=== PATIENT | female | born 1960 | race African-American/Black ===

== ENCOUNTER 2018-07-09 09:10 | Observation (INO) | payer MEDICAID ==
--- NOTE | 2018-07-09 09:34 | ED ---
HPI Chest Pain - HPI Summary HPI Summary: This pt is a 58 y/o female [facility] c/o left sided chest pain. Pt is hard of hearing and daughter, Prisca, is giving the history. Daughter states that around 20:30 last night pt began to have chest pain and elevated blood pressure, around 155/72 at its max. Pt took her blood pressure medication soon after and her blood pressure decreased, significant lower. Daughter states pt took 324 mg aspirin at 20:30 last night. Pt did not want to come to the ED as her chest pain had already resolved. This morning around 08:30 pt began to have chest pain again. Pt describes pressure on the left side of her chest, rating it 6 or 7 out of 10 in severity. She states her chest pain radiates to the left side of her jaw and down her left arm. Pt also reports some cough yesterday. Denies fever, chills, SOB, nausea, vomiting, abd pain. PMHx: CHF, HTN, asthma. No hx of blood clots or aneurysms. Pt does not have a PCP. Her medications, albuterol and antihypertensive medications, are prescribed by the [facility]. - History of Current Complaint Chief Complaint: EDChestPainROMI Time Seen by Provider: 07/09/18 09:25 Hx Obtained From: Patient, Family/Golf Cart Maker - Daughter Onset/Duration: Started Days Ago - 1, Still Present Timing: Intermittent, Lasting Days - 1 Current Severity: Moderate Pain Intensity: 6 Pain Scale Used: 0-10 Numeric Chest Pain Location: Left Anterior Chest Pain Radiates: Yes Chest Pain Radiates To:: Arm - left, Jaw - left Character: Dull/Aching - Aching, Pressure/Squeezing - pressure Aggravating Factor(s): Nothing Alleviating Factor(s): Nothing Associated Signs and Symptoms: Positive: Chest Pain, Cough. Negative: Shortness of Breath, Fever, Chills, Nausea, Abdominal Pain, Vomiting - Allergy/Home Medications Allergies/Adverse Reactions: Allergies Allergy/AdvReac Type Severity Reaction Status Date / Time Sulfa (Sulfonamide Allergy Rash Verified 07/09/18 09:27 Antibiotics) Home Medications: Home Medications Albuterol HFA INHALER* [Ventolin HFA Inhaler*] 2 puff INH Q6H PRN 07/09/18 [ History Confirmed 07/09/18] Aspirin TAB* [Aspirin 325 MG TAB*] 325 mg PO DAILY PRN 07/09/18 [History Confirmed 07/09/18] Metoprolol Succinate XL TAB* [Toprol XL TAB*] 25 mg PO DAILY 07/09/18 [History Confirmed 07/09/18] PMH/Surg Hx/FS Hx/Imm Hx Cardiovascular History: Reports: Hx Congestive Heart Failure, Hx Hypertension Respiratory History: Reports: Hx Asthma Infectious Disease History: No Infectious Disease History: Denies: Traveled Outside the [place] in Last 30 Days - Family History Known Family History: Positive: Diabetes - father - Social History Alcohol Use: None Substance Use Type: Reports: None Smoking Status (MU): Never Smoked Tobacco Review of Systems Negative: Fever, Chills Negative: Erythema Negative: Sore Throat Positive: Chest Pain Positive: Cough. Negative: Shortness Of Breath Negative: Abdominal Pain, Vomiting, Nausea Negative: dysuria, hematuria Negative: Myalgia, Edema Negative: Rash Neurological: Other - NEG: dizziness All Other Systems Reviewed And Are Negative: Yes Physical Exam - Summary Physical Exam Summary: Constitutional: Well-developed, Well-nourished, Alert. (-) Distressed Skin: Warm, Dry HENT: Normocephalic; Atraumatic Eyes: Conjunctiva normal Neck: Musculoskeletal ROM normal neck. (-) JVD, (-) Stridor, (-) Tracheal deviation Cardio: Rhythm regular, rate normal, Heart sounds normal; Intact distal pulses; The pedal pulses are 2+ and symmetric. Radial pulses are 2+ and symmetric. (-) Murmur Pulmonary/Chest wall: Effort normal. (-) Respiratory distress, (-) Wheezes, (-) Rales Abd: Soft, (-) Tenderness, (-) Distension, (-) Guarding, (-) Rebound Musculoskeletal: (-) Edema Lymph: (-) Cervical adenopathy Neuro: Alert, Oriented x3 Psych: Mood and affect Normal Triage Information Reviewed: Yes Vital Signs On Initial Exam: Initial Vitals Temp Pulse Resp BP Pulse Ox 97.8 F 67 18 139/65 100 07/09/18 09:13 07/09/18 09:13 07/09/18 09:13 07/09/18 09:13 07/09/18 09:13 Vital Signs Reviewed: Yes Diagnostics - Vital Signs Vital Signs Temp Pulse Resp BP Pulse Ox 07/09/18 09:13 97.8 F 67 18 139/65 100 - Laboratory Result Diagrams: 07/09/18 09:42 07/09/18 09:42 Lab Statement: Any lab studies that have been ordered have been reviewed, and results considered in the medical decision making process. - Radiology Chest XR Radiology Interpretation Completed By: Radiologist Summary of Radiographic Findings: IMPRESSION: No active cardiopulmonary disease is noted. Dr. Bro has reviewed this report. - EKG 09:24 Cardiac Rate: NL - at 64 bpm EKG Rhythm: Sinus Rhythm Summary of EKG Findings: No STEMI Re-Evaluation - Re-Evaluation First Eval Re-Evaluation Time: 10:40 Change: Improved Comment: Pt reports improvement of her chest discomfort, down to 3/10 in severity. Pt also states she has a headache. Chest Pain Course/Dx - Course Assessment/Plan: Pt is a 58 y/o female who presents to the ED with left sided chest pain radiating to left jaw and left arm. Pt had an episode of chest pain with elevated blood pressure yesterday at 20:30. Both resolved after antihypertensive medication and 324 mg aspirin. Today at 08:30 chest pain began again, described as pressure. Chest XR shows no active cardiopulmonary disease is noted. In the ED course the pt was given Tylenol, nitro tab, nitroglycerin ointment. I discussed the case with Dr. Morales, hospitalist, who accepted the pt for admission. - Diagnoses Provider Diagnoses: Chest pain, unspecified - Provider Notifications Discussed Care Of Patient With: Destiny Morales - hospitalist Time Discussed With Above Provider: 10:52 Instructed by Provider To: Admit As Inpatient Discharge - Sign-Out/Discharge Documenting (check all that apply): Patient Departure - Admit to [facility] - Discharge Plan Condition: Stable Disposition: ADMITTED TO [facility] Referrals: No Primary Care Phys,NOPCP [Primary Care Provider] - - Attestation Statements Document Initiated by Scribe: Yes Documenting Scribe: Esha Rojas Provider For Whom Scribe is Documenting (Include Credential): Obinna Bro MD Scribe Attestation: Esha Ball, scribed for Obinna Bro MD on 07/09/18 at 1321. Status of Scribe Document: Ready
[2018-07-09] MEDS ORDERED: Nitroglycerin TAB 0.4 MG* 0.4 MG TAB SL ONE (09:37)
[2018-07-09 09:56] LABS: ABS Basophils 0.1 10^3/ul (0-0.2); ABS Eosinophils 0.1 10^3/ul (0-0.6); ABS Lymphocytes 1.9 10^3/ul (1.0-4.8); ABS Monocytes 0.9 10^3/ul (0-0.8); ABS Nucleated RBC 0 10^3/ul; Eosinophil % 0.8 %; Hematocrit 35 % (35-47); Hemoglobin 11.3 g/dl (12.0-16.0); Lymphocyte % 21.4 %; Mean Corpuscular HGB Conc 33 g/dl (31-36); Mean Corpuscular Hemoglobin 29 pg (27-31); Mean Corpuscular Volume 89 fL (80-97); Mean Platelet Volume 8.8 fL (7.4-10.4); Nucleated Red Blood Cells % 0.1; Platelet Count 234 10^3/ul (150-450); Red Blood Count 3.91 10^6/ul (4.00-5.40); Red Cell Distribution Width 13 % (10.5-15); White Blood Count 8.9 10^3/ul (3.5-10.8)
[2018-07-09 10:14] LABS: Albumin 3.9 g/dL (3.2-5.2); Albumin/Globulin Ratio 1.3 (1-3); BUN/Creatinine Ratio 10.5 (8-20); EGFR Non-African American 67.8 (>60); Globulin 2.9 g/dL (2-4); Potassium 3.9 mmol/L (3.5-5.0); Total Bilirubin 0.5 mg/dL (0.2-1.0); Total Protein 6.8 g/dL (6.4-8.9)
[2018-07-09] MEDS ORDERED: Nitroglycerin 2% OINT* 1 GM PAK TOPICAL ONE (10:43)
[2018-07-09] MEDS ORDERED: Acetaminophen TAB* 325 MG PO ONE (10:43)
[2018-07-09] MEDS ORDERED: Nitroglycerin TAB 0.4 MG* 0.4 MG TAB SL PRN (12:29)
[2018-07-09] MEDS ORDERED: Aspirin TAB* 325 MG PO PRN (12:37)
[2018-07-09] MEDS ORDERED: Albuterol 2.5 MG/3 ML NEB.SOL* (0.083%) INH PRN (12:37)
[2018-07-09 13:41] LABS: TSH (Thyroid Stimulating Horm) 1.06 mcIU/mL (0.34-5.60)
[2018-07-09] MEDS: Heparin VIAL(*) 5000 UNITS/ML VIAL (FIVE THOUSAND) SUBCUT SCH ×2 (14:30→21:51)
--- NOTE | 2018-07-09 14:47 | HP ---
ADMISSION HISTORY AND PHYSICAL: DATE OF ADMISSION: 07/09/18 PRIMARY CARE PROVIDER: None. MY ATTENDING WHILE IN THE HOSPITAL: Dr. Destiny Morales.* (DICTATED BY SCOTT PADRON) CHIEF COMPLAINT: Chest pain. HISTORY OF PRESENT ILLNESS: Ms. Gardner is a 58-year-old female with past medical history significant for CHF, hypertension, asthma and congenital deafness as well as sickle cell trait, who presents to the emergency department with 1 day of intermittent chest pain and shortness of breath that started in the evening of 07/09/18. The patient is difficult to communicate with due to her deafness, so most of this is obtained through communication via her daughter. The patient states that her first symptom was irritability, which occurred 2 days ago that she was not annoyed to anybody; she just felt on edge and her chest pain and shortness of breath began last night. It was under her left breast and radiated into her left arm, into her back and up into her neck. The patient states it came and went. The patient's blood pressure was at its highest, 153/72. The patient at this time is chest pain free. The patient denies any diaphoresis. The patient's main pain at this point is in her neck and seems to radiate down from her face and is reproducible to palpation. The patient has not taken anything for this. The patient had a history of CHF; they are unsure what type. The patient do not think she has ever had a catheterization or a stress test. The patient relatively gets short of breath on exertion, but is generally asymptomatic if she does not engage in strenuous exercise. The patient most recently had a cold, which her daughter also had and has been coughing more recently. The patient has chronic lower back pain and this is still present and is not changed from her baseline. The patient has recently lost approximately 5 to 7 pounds of what they assumed to be water weight due to the decrease in her edema. The patient does not get frequent edema. The patient does not take any diuretics. The patient moved from [place] in 2009, has not established with primary care or spool cleaner hand. The patient had a spool cleaner hand in [place], but they do not know his or her name. Due to concern for chest pain and the patient with cardiac risk factors, we are asked to evaluate the patient for admission. PAST MEDICAL HISTORY: CHF, unknown type; hypertension; asthma; thyroid nodule; lumbar pain; congenital deafness; sickle cell trait. PAST SURGICAL HISTORY: Partial thyroidectomy. MEDICATIONS: 1. Metoprolol tartrate 25 mg p.o. daily. 2. Albuterol sulfate inhaler, unknown dose every 4 hours as needed. 3. Aspirin 325 mg p.o. daily. ALLERGIES: SULFA. FAMILY HISTORY: The patient's father of complications of diabetes. The patient's mother of cardiac disease, unknown type. The patient has several siblings who are all alive and healthy. SOCIAL HISTORY: The patient has a remote history of smoking, unable to quantify the amount. The patient denies ever drinking alcohol or using drugs. The patient is disabled due to her deafness. The patient is and has only one child. The patient's surrogate decision maker is her daughter, Tamara Chandra, or her brother, Joseph Gardner. REVIEW OF SYSTEMS: A 14-point review of systems was reviewed and is negative, except as above in the HPI. PHYSICAL EXAMINATION GENERAL: The patient is a 58-year-old female, who appears stated age and is sitting comfortably on bed, in no acute distress. HEENT: Head: Normocephalic, atraumatic. Sclerae anicteric. No conjunctival injection. Nasal mucosa moist. Oral mucosa moist. No pharyngeal erythema, discharge or exudate. NECK: Tender to palpation over the lateral aspect of the left side of the neck with palpable tensing of the muscles. No lymphadenopathy. No carotid bruits auscultated. No JVD. RESPIRATORY: Clear to auscultation bilaterally. No wheezes, rales or rhonchi. Good air exchange bilaterally. CARDIAC: Regular rate and rhythm. No clicks, murmurs, gallops or rubs. Pulses are 2+ in the bilateral dorsalis pedis, posterior tibialis, and radial areas. No bilateral lower extremity edema noted. ABDOMEN: Tender to palpation in the right upper quadrant. No rebound or guarding. No hepatosplenomegaly. No abdominal bruits auscultated. No hepatojugular reflux. GENITOURINARY: No suprapubic or CVA tenderness. NEUROLOGIC: Cranial nerves II through XII intact except for deafness. No focal deficits. Alert and oriented x3. PSYCHIATRIC: Pleasant and cooperative. SKIN: Clean, dry, and intact. No rash. DIAGNOSTIC STUDIES/LAB DATA: White blood cell count of 8.9, hemoglobin 11.3, hematocrit 35, MCV 89, platelet count 234. Sodium 145, potassium 3.9, chloride 108, carbon dioxide 25, anion gap 5, BUN 9, creatinine 0.86, glucose 129, lactic acid 1.1, calcium 10.0. Bilirubin 0.5, AST 14, ALT 12, alkaline phosphatase 89. Troponin I 0.00. Total protein 6.8, albumin 3.9, globulin 2.9. Studies: EKG has normal sinus rhythm, normal axis, no hypertrophy or enlargement, no blocks. Concave ST elevation in V2 and V3 likely representing repolarization pattern. No ST segment changes. No prior studies to compare. Chest x-ray shows no acute cardiopulmonary disease. ASSESSMENT AND PLAN/IMPRESSION: Ms. Gardner is a 58-year-old male with past medical history significant for congestive heart failure, unknown etiology; hypertension; asthma and congenital deafness, who presents to the emergency department with chest pain which started last night, but has been intermittent, radiating throughout her chest and neck. The patient is currently chest pain free. The patient will be admitted for rule out myocardial infarction and evaluation for acute coronary syndrome. 1. Chest pain: The patient's chest pain has signs worrisome for acute coronary syndrome including radiation to the neck and the arm and associated shortness of breath. We do not know what the etiology of the patient's congestive heart failure is. If the patient's family is able to find out who her spool cleaner hand was, we will request records for this. The patient will be risk stratified with lipid profile and hemoglobin A1c. The patient's blood pressure is well controlled. The patient will be admitted to the hospital for serial troponins, transthoracic echocardiogram and a nuclear medicine stress test. Treatment for the patient's hyperlipidemia and diabetes will be dependant on her lipid profile and hemoglobin A1c. The patient does not need to be diuresed at this time. The patient is in no respiratory distress. The patient will have nitroglycerin available as needed for recurrent chest pain. 2. Hypertension: The patient is currently normotensive. Hold the patient's metoprolol due to stress test. 3. Asthma: Continue albuterol inhaler while in the hospital. 4. Sickle cell trait. The patient is slightly anemic and this does not appear to be an active issue with the patient. She has no signs of acute chest syndrome and is not homozygous for this trait. 5. History of thyroid nodule, add on TSH, which has not been checked yet. 6. FEN: The patient will have a heart-healthy diet without caffeine. Fluids after midnight. 7. DVT prophylaxis: The patient is a high risk. We will place her on heparin subcu. 8. Disposition: The patient is admitted to observation for a stress test. TIME SPENT: Approximately 60 minutes were spent on the admission of this patient, 30 of which was spent [id number] with the patient obtaining history and physical and discussing treatment plan. This plan was discussed with my attending, Dr. Destiny Morales, and she is in agreement. SCOTT PADRON [id number]/CPS #: [id number] MTDYair
--- NOTE | 2018-07-09 19:06 | ECHO ---
Patient: MINDI MORGAN [facility] Rec#: [id number] : 1960 Date: 07/09/2018 Age: 58y Height: 168 cm / 66.1 in Weight: 61.8 kg / 136.2 lbs Sex: F BSA: 1.7 Room#: ICU 13 Admit Date#: 07/09/2018 Type: Inpatient Referring: Wilber Gusman Reading: Devi Hills MD Network Consultant: Mabel Varela RN RDCS Transthoracic Echocardiogram Indication: Chest pain, CHF BP: 115/76 HR: 61 Rhythm: NSR Findings History: HTN, CHF, asthma, thyroid nodule, congenital deafness, sickle cell trait. Technical Comments: The study quality is good. Left Ventricle: The left ventricular chamber size is decreased. Mild concentric left ventricular hypertrophy is observed. Global left ventricular wall motion and contractility are within normal limits. There is normal left ventricular systolic function. The estimated ejection fraction is 55-60%. There is no consistent Doppler evidence of clinically significant diastolic dysfunction. Left Atrium: The left atrial chamber size is normal. Right Ventricle: The right ventricular chamber size and systolic function are within normal limits. Right Atrium: The right atrial cavity size is normal. There is evidence of an atrial septal aneurysm. Aortic Valve: The aortic valve is trileaflet. The aortic valve leaflets are mildly thickened. There is no evidence of aortic regurgitation. There is no evidence of aortic stenosis. Mitral Valve: The mitral valve leaflets are mildly thickened. There is mild mitral regurgitation. There is no evidence of mitral stenosis. Tricuspid Valve: The tricuspid valve leaflets are normal. There is trace to mild tricuspid regurgitation. No pulmonary hypertension is noted. There is no tricuspid stenosis. Pulmonic Valve: The pulmonic valve appears normal. There is a trace pulmonic regurgitation. There is no pulmonic stenosis. Pericardium: There is no significant pericardial effusion. Aorta: There is no dilatation of the ascending aorta. There is no dilatation of the aortic arch. There is no dilation of the aortic root. Pulmonary Artery: The main pulmonary artery appears normal. Venous: The inferior vena cava appears normal in size. There is an approximate 50% respiratory change in the inferior vena cava dimension. Summary: There was not any prior study for comparison. Conclusions The left ventricular chamber size is decreased. Mild concentric left ventricular hypertrophy is observed. The estimated ejection fraction is 55-60%. There is mild mitral regurgitation. There is trace to mild tricuspid regurgitation. There is a trace pulmonic regurgitation. Measurements Name Value Normal Range RVIDd (AP) 2D 2.3 cm (0.9 - 2.6) RVDdMajor (2D) 2.8 cm (2.2 - 4.4) RAd ISD 4CH 4.1 cm (3.4 - 4.9) RA (A4C)W 3.3 cm (2.9 - 4.6) IVSd (2D) 1 cm (0.6 - 1) LVPWd (2D) 1.1 cm (0.6 - 1) LVIDd (2D) 3.4 cm (3.6 - 5.4) LVIDs (2D) 2.5 cm - LV FS (2D) 26 % (25 - 45) Aortic Annulus 1.7 cm (1.4 - 2.6) Ao root diameter (2D) 2.6 cm (2.1 - 3.5) Ascending Ao 2.6 cm (2.1 - 3.4) Aortic arch 2.3 cm (1.8 - 3.4) LA dimension (AP) 2D 2.8 cm (2.3 - 3.8) LAd ISD 4CH 4.5 cm (2.9 - 5.3) LA ISD 4CH W 3.5 cm (2.5 - 4.5) Name Value Normal Range LA ESV BP (A/L) index 20.5 ml/m2 - Name Value Normal Range MV E-wave Vmax 1 m/sec - MV deceleration time 289 msec - MV A-wave Vmax 1.1 m/sec - MV E:A ratio 1 ratio - LV septal e' Vmax 0.09 m/sec - LV lateral e' Vmax 0.1 m/sec - LV E:e' septal ratio 11.1 ratio - LV E:e' lateral ratio 10 ratio - Name Value Normal Range AV Vmax 1.5 m/sec - AV VTI 31.7 cm - AV peak gradient 8 mmHg - AV mean gradient 4 mmHg - LVOT Vmax 1.1 m/sec - LVOT VTI 22.6 cm - LVOT peak gradient 5 mmHg - LVOT mean gradient 2 mmHg - PALMER Vmax 0.68 m/sec - Name Value Normal Range TR Vmax 2.5 m/sec - TR peak gradient 25 mmHg - RAP 8 mmHg - RVSP 33 mmHg - IVC diameter 1.7 cm - Name Value Normal Range PV Vmax 0.81 m/sec -
[2018-07-09] MEDS: Acetaminophen TAB* 325 MG PO PRN (20:02)
[2018-07-09] MEDS ORDERED: Metoprolol Succinate XL TAB* 25 MG PO ONE (21:49)
[2018-07-09] MEDS: Ondansetron INJ* 2 MG/ML VIAL IV PRN (23:40)
[2018-07-09] MEDS: NS 0.9% 1000 ML* 1,000 ML IV SCH (23:56)
[2018-07-10 07:11] LABS: ABS Basophils 0 10^3/ul (0-0.2); ABS Eosinophils 0.1 10^3/ul (0-0.6); ABS Lymphocytes 2.7 10^3/ul (1.0-4.8); ABS Monocytes 0.6 10^3/ul (0-0.8); ABS Neutrophils 3.4 10^3/ul (1.5-7.7); ABS Nucleated RBC 0 10^3/ul; Eosinophil % 1.5 %; Hematocrit 34 % (35-47); Hemoglobin 11.3 g/dl (12.0-16.0); Lymphocyte % 39.3 %; Mean Corpuscular HGB Conc 33 g/dl (31-36); Mean Corpuscular Hemoglobin 30 pg (27-31); Mean Corpuscular Volume 90 fL (80-97); Mean Platelet Volume 8.9 fL (7.4-10.4); Nucleated Red Blood Cells % 0.1; Platelet Count 228 10^3/ul (150-450); Red Cell Distribution Width 13 % (10.5-15); White Blood Count 6.8 10^3/ul (3.5-10.8)
[2018-07-10 07:16] LABS: BUN/Creatinine Ratio 11.5 (8-20); Calcium 9.4 mg/dL (8.6-10.3); EGFR Non-African American 66.9 (>60); HDL Cholesterol 44.5 mg/dL; Magnesium 2.1 mg/dL (1.9-2.7); Potassium 4.2 mmol/L (3.5-5.0)
[2018-07-10] MEDS: Heparin VIAL(*) 5000 UNITS/ML VIAL (FIVE THOUSAND) SUBCUT SCH ×3 (07:25→21:21)
[2018-07-10] MEDS: Metoprolol Succinate XL TAB* 25 MG PO SCH (08:28)
[2018-07-10] MEDS: Ondansetron INJ* 2 MG/ML VIAL IV PRN ×2 (08:47→21:21)
[2018-07-10] MEDS: NS 0.9% 1000 ML* 1,000 ML IV SCH (08:50)
[2018-07-10] MEDS ORDERED: Metoprolol Succinate XL TAB* 25 MG PO SCH ×2 (09:00)
[2018-07-10] MEDS ORDERED: Regadenoson* 0.4 MG/5 ML SYRINGE ONE (13:37)
[2018-07-10] MEDS: Acetaminophen TAB* 325 MG PO PRN (16:17)
--- NOTE | 2018-07-10 17:29 | PN ---
Subjective Date of Service: 07/10/18 Interval History: Pt seen and examined. Meds and labs reviewed. Pt refused any type of stress test that will need an injection for any reason. Therefore, ordered exercise stress test. CC: N/A ROS: Denied QUINTERO/dizziness, F/C, N/V, CP, SOB, increased cough, sputum production , abd pain, diarrhea, constipation, dysuria, myalgias, arthralgias, throat pain , and new skin lesions. The rest of the 14 point ROS are unremarkable. PHYSICAL EXAM: GEN APPEARANCE: Awake, not in acute distress HEENT: NC/AT, PERRLA, moist oral mucosa, (-) throat erythema NECK: Soft, supple, (-) cervical LAD, (-)JVD HEART: S1S2 WNL, RRR, No MRG CHEST: CTA, BL, GAE, No W/R/R ABD: Soft, ND/NT, NABS 4x Q EXT: No C/C/E SKIN: Warm to touch PSYCH: No active psychosis, hallucinations, depression, SI/HI Objective Active Medications: Acetaminophen (Tylenol Tab*) 650 mg PO Q6H PRN PRN Reason: FEVER/PAIN Last Admin: 07/10/18 16:17 Dose: 650 mg Albuterol (Ventolin 2.5 Mg/3 Ml Neb.Elizabeth*) 2.5 mg INH Q4H PRN PRN Reason: SOB/WHEEZING Aspirin (Aspirin Tab*) 325 mg PO DAILY PRN PRN Reason: PAIN Heparin Sodium (Porcine) (Heparin Vial(*)) 5,000 units SUBCUT Q8HR [facility] Last Admin: 07/10/18 14:19 Dose: Not Given Sodium Chloride (Ns 0.9% 1000 Ml*) 1,000 mls @ 75 mls/hr IV PER RATE [facility] Last Admin: 07/10/18 08:50 Dose: 75 mls/hr Metoprolol Succinate (Toprol Xl Tab*) 25 mg PO DAILY [facility] Last Admin: 07/10/18 08:28 Dose: Not Given Nitroglycerin (Nitroglycerin Tab 0.4 Mg*) 0.4 mg SL Q5M PRN PRN Reason: ANGINA Ondansetron HCl (Zofran Inj*) 4 mg IV Q6H PRN PRN Reason: NAUSEA Last Admin: 07/10/18 08:47 Dose: 4 mg Vital Signs - 8 hr 07/10/18 07/10/18 07/10/18 10:00 11:00 12:00 Temperature Pulse Rate 58 66 64 Respiratory 12 15 16 Rate Blood Pressure 162/83 (mmHg) O2 Sat by Pulse 94 98 98 Oximetry 07/10/18 07/10/18 07/10/18 12:01 12:59 13:00 Temperature 98.5 F Pulse Rate 67 61 Respiratory 15 25 Rate Blood Pressure (mmHg) O2 Sat by Pulse 96 98 Oximetry 07/10/18 07/10/18 07/10/18 14:00 15:52 15:57 Temperature Pulse Rate 65 70 71 Respiratory 19 15 Rate Blood Pressure 128/79 (mmHg) O2 Sat by Pulse 99 95 97 Oximetry 07/10/18 07/10/18 07/10/18 16:00 16:01 16:02 Temperature 97.7 F Pulse Rate 68 64 Respiratory 13 12 Rate Blood Pressure 127/72 (mmHg) O2 Sat by Pulse 94 96 Oximetry 07/10/18 17:00 Temperature Pulse Rate 83 Respiratory 23 Rate Blood Pressure (mmHg) O2 Sat by Pulse 100 Oximetry Oxygen Devices in Use Now: None Result Diagrams: 07/10/18 06:26 07/10/18 06:26 Microbiology and Other Data: Microbiology 07/09/18 15:00 Nasal Screen MRSA (PCR) - Final Nasal Mrsa Not Detected Assess/Plan/Problems-Billing Assessment: - Patient Problems (1) Chest pain Current Visit: Yes Status: Acute Code(s): R07.9 - CHEST PAIN, UNSPECIFIED SNOMED Code(s): 32729155 Comment: -J point elevations noted in chest leads -ACS ruled out with (-) troponins x 3 -2D echo shows no wall motion abnormalities w/EF = 55-60% -D-dimer <200 -Awaiting results of exercise stress test (2) HTN (hypertension) Current Visit: Yes Status: Acute Code(s): I10 - ESSENTIAL (PRIMARY) HYPERTENSION SNOMED Code(s): 08955392 Comment: -Continue Metoprolol (3) Asthma Current Visit: Yes Status: Acute Code(s): J45.909 - UNSPECIFIED ASTHMA, UNCOMPLICATED SNOMED Code(s): 488558297 Comment: -Not in acute exacerbation -Continue PRN Nebs (4) Thyroid nodule Current Visit: Yes Status: Acute Code(s): E04.1 - NONTOXIC SINGLE THYROID NODULE SNOMED Code(s): 834420797 Comment: -TSH WNL -Defer w/PCP to follow up as outpatient (5) DVT prophylaxis Current Visit: Yes Status: Acute Code(s): ZRH2718 - SNOMED Code(s): 145849288 Comment: -Continue Heparin SQ q8H Status and Disposition: -For possible D/C in AM -Transfer to
[2018-07-10] MEDS ORDERED: Morphine VIAL* 4 MG/ML VIAL (1 ml vial) IV PRN (18:03)
[2018-07-10] MEDS ORDERED: Morphine VIAL* 4 MG/ML VIAL (1 ml vial) ONE ×2 (18:11)
[2018-07-10] MEDS ORDERED: Metoprolol Succinate XL TAB* 25 MG PO ONE (21:10)
[2018-07-10] MEDS ORDERED: amLODIPine TAB* 5 MG PO ONE (23:34)
[2018-07-11] MEDS: Simethicone LIQ* 40 MG/0.6 ML UD ORAL SYRINGE PO PRN ×2 (00:33→13:59)
[2018-07-11] MEDS: NS 0.9% 1000 ML* 1,000 ML IV SCH (04:00)
[2018-07-11 05:46] LABS: Hematocrit 33 % (35-47); Hemoglobin 10.7 g/dl (12.0-16.0); Mean Corpuscular HGB Conc 32 g/dl (31-36); Mean Corpuscular Hemoglobin 29 pg (27-31); Mean Corpuscular Volume 89 fL (80-97); Mean Platelet Volume 8.6 fL (7.4-10.4); Platelet Count 220 10^3/ul (150-450); Red Blood Count 3.68 10^6/ul (4.00-5.40); Red Cell Distribution Width 13 % (10.5-15)
[2018-07-11 06:03] LABS: Albumin 3.6 g/dL (3.2-5.2); Albumin/Globulin Ratio 1.4 (1-3); BUN/Creatinine Ratio 14.9 (8-20); Calcium 9.2 mg/dL (8.6-10.3); EGFR Non-African American 66.9 (>60); Globulin 2.6 g/dL (2-4); Potassium 4.1 mmol/L (3.5-5.0); Total Bilirubin 0.5 mg/dL (0.2-1.0); Total Protein 6.2 g/dL (6.4-8.9)
[2018-07-11] MEDS: Heparin VIAL(*) 5000 UNITS/ML VIAL (FIVE THOUSAND) SUBCUT SCH ×2 (07:40→14:09)
[2018-07-11] MEDS: Acetaminophen TAB* 325 MG PO PRN (09:02)
[2018-07-11] MEDS: Metoprolol Succinate XL TAB* 25 MG PO SCH (09:02)
[2018-07-11] MEDS ORDERED: Omeprazole CAP (NF) 20 MG CAP.DR PO SCH (11:00)
[2018-07-11] MEDS: Ondansetron INJ* 2 MG/ML VIAL IV PRN (12:05)
[2018-07-11 15:58] VITALS: BP 141/83
--- NOTE | 2018-07-12 00:29 | DS ---
ADDENDUM TO DISCHARGE SUMMARY: DISCHARGE DIAGNOSES: Impacted cerumen, left ear. DISCHARGE MEDICATIONS: Carbamide peroxide 6.5% otic solution 10 drops to left ear b.i.d. for 4 days. [id number]/[facility] #: [id number]
--- NOTE | 2018-07-12 00:46 | DS ---
DISCHARGE SUMMARY: DATE OF ADMISSION: DATE OF DISCHARGE: 07/11/18 DISCHARGE DIAGNOSES: As follows: 1. Chest pain, atypical possibly gastroesophageal reflux disease, although stress test by Mahesh protocol is intermediate probability due to poor exercise tolerance. 2. Gastroesophageal reflux disease. 3. Impacted cerumen, left 4. History of hypertension. 5. History of asthma. DISCHARGE MEDICATIONS: As follows: 1. Omeprazole 40 mg p.o. daily. 2. Albuterol HFA 2 puffs inhalation q.6 p.r.n. 3. Aspirin 81 mg p.o. daily. 4. Metoprolol succinate 25 mg p.o. daily. 5. Omeprazole 40 mg p.o. daily. HISTORY OF PRESENT ILLNESS/HOSPITAL COURSE: The patient is a 58-year-old, - [place] lady with history of hypertension, asthma, and sickle cell trait, who was admitted for a complaint of chest pain that is intermittent accompanied with some shortness of breath that started on the evening prior to her admission. She was admitted for chest pain observation and initially was scheduled for a Lexiscan scan stress test; however, she refused this and again rescinded her refusal only to once again refuse it. Because of multiple changes and patient's indecisiveness, the stress test was not done until Friday afternoon until she finally agreed with an EKG stress test by Mahesh protocol. Although she did mention before that she had syncopized with many multiple stress tests including a pharmacologic and an exercise stress. She had been advised to instead go for a pharmacological stress test given there is an increased likelihood of syncope in an exercise stress test and given her poor exercise tolerance in the past, I tried to convince the patient initially that the test may not be helpful if she is unable to tolerate exercise. I also offered an exercise nuclear test but mentions she does not want any form of "dye " to be injected. Unfortunately, because of a similar poor exercise tolerance, based on criteria, she is categorized as intermediate probability by exercise EKG stress test via Mahesh protocol. She has been ruled out for acute coronary syndrome with troponins being negative x4 and has also been ruled out for venous thromboembolism given a normal D-dimer of less than 200. However, it was stressed to the patient that given her stress test is intermediate probability that her cardiac risks remains equivocal. However, given her presenting NINI score is only equal to 2 and her history since 1999 of since being diagnosed with "congestive heart failure," the patient as well as her sister at bedside correlated the fact that she was recently diagnosed with CHF along with the chest pain that usually occurs more of as a severe dyspepsia. Hence, she was also placed on pantoprazole. She had recurrent chest pain, which was again ruled out for ACS and a repeat chest x-ray was normal the day prior to her discharge. She had been advised to follow up and/or call her PCP within 3 days post discharge and if her symptoms resume or develop new ones or feel unwell for any reason to call her PCP first. If her PCP cannot entertain her due to scheduling issues alone, she was advised to call [facility] if the issue is nonemergent. She was advised to call my office regarding any questions , concerns, or further clarification regarding her discharge plans and/or prescriptions and she was advised to take her medications as prescribed. Patient was advised a repeat stress test this time with imaging such as a stress echo or a stress nuclear study would be more appropriate to better look at her myocardium rather than a stress EKG by Mahesh protocol. Unfortunately, she refused the other 2 tests, but given the intermediate probability result as discussed, the patient is more than willing to reconsider a possible repeat stress imaging stress test. REVIEW OF SYSTEMS: All 14 point review of systems were unremarkable. PHYSICAL EXAMINATION: Reveals the most recent vital signs of records with blood pressure of 116/66, 72 beats per minute heart rate, 99 degrees Fahrenheit temperature, and 17 per minute respiratory rate, saturating at 100% on room air. General Appearance: The patient is awake, alert, and oriented x3, not in acute distress. HEENT: Normocephalic, atraumatic, left ear on otoscopic exam shows impacted cerumen. PERRLA. Negative for icterus. Moist oral mucosa. Negative throat erythema. Neck is soft, supple with no cervical lymphadenopathy , no JVD. Heart: S1, S2, within normal limits. Regular rate and rhythm. No murmurs, rubs, or gallops. Chest: Clear to auscultation bilaterally. Good air entry. No wheezes, rales, or rhonchi. Abdomen is soft, nondistended, nontender. Normoactive bowel sounds x4 quadrants. Extremities: No cyanosis, clubbing, or edema. Psychiatric: No active psychosis, depression, suicidal or homicidal ideation. Skin is warm to touch. [id number]/[facility] #: [id number] NAN
== END 2018-07-11 16:49 | disposition home or self-care (01) ==
LOC: ED 09:10 → ICU 12:29
PROVIDERS: ADMIT Hospitalist; ATTEND Student in an Organized Health Care Education/Training Program
DX: R07.89 Other chest pain (principal); K21.9 Gastro-esophageal reflux disease without esophagitis; H61.22 Impacted cerumen, left ear; I10 Essential (primary) hypertension; J45.909 Unspecified asthma, uncomplicated; Z79.82 Long term (current) use of aspirin; E04.1 Nontoxic single thyroid nodule
CPT/HCPCS: 36415; 71045; 80048; 80053; 80061; 83036; 83605; 83735; 84100; 84443; 84484; 85025; 85027; 85379; 87641; 93005; 93017; 93306; 96372; 96374; 96376; 99285; A9270-GY; G0378; J1644; J2270; J2405; J2785

== ENCOUNTER 2019-08-05 11:36 | Emergency (ER) | payer MEDICAID ==
[2019-08-05 12:39] LABS: ABS Basophils 0.1 10^3/ul (0-0.2); ABS Eosinophils 0.2 10^3/ul (0-0.6); ABS Lymphocytes 1.6 10^3/ul (1.0-4.8); ABS Monocytes 0.5 10^3/ul (0-0.8); ABS Neutrophils 2.7 10^3/ul (1.5-7.7); Eosinophil % 3.2 %; Hematocrit 35 % (35-47); Hemoglobin 11.4 g/dL (12.0-16.0); Lymphocyte % 31.9 %; Mean Corpuscular HGB Conc 33 g/dL (31-36); Mean Corpuscular Hemoglobin 28 pg (27-31); Mean Corpuscular Volume 87 fL (80-97); Mean Platelet Volume 8.6 fL (7.4-10.4); Nucleated Red Blood Cells % 0.2; Platelet Count 225 10^3/uL (150-450); Red Blood Count 4.04 10^6 /uL (3.70-4.87); Red Cell Distribution Width 13 % (10-15); White Blood Count 5.1 10^3/uL (3.5-10.8)
[2019-08-05 13:02] LABS: Albumin 4.2 g/dL (3.2-5.2); Albumin/Globulin Ratio 1.8 (1-3); BUN/Creatinine Ratio 7.9 (8-20); C Reactive Protein 2.29 mg/L (<8.01); Calcium 9.7 mg/dL (8.6-10.3); EGFR African American 67.9 (>60); EGFR Non-African American 56.1 (>60); Globulin 2.4 g/dL (2-4); Potassium 4.1 mmol/L (3.5-5.0); Total Bilirubin 0.7 mg/dL (0.2-1.0); Total Protein 6.6 g/dL (6.4-8.9)
[2019-08-05 13:06] LABS: CKMB ng/mL 1.1 ng/mL (0.6-6.3)
[2019-08-05 13:48] LABS: Rapid Strep Molecular Negative (Negative)
[2019-08-05 13:55] LABS: Influenza A Molecular Negative (Negative); Influenza B Molecular Negative (Negative)
--- NOTE | 2019-08-05 14:32 | ED ---
Respiratory - HPI Summary HPI Summary: Patient is a 59 y/o F presenting to [facility] with complaints of productive cough, sinus pain, rhinorrhea, chest pain, and fever. Patient reports that she has been having sinus pain, productive cough, and rhinorrhea for the past two weeks. She states that she has been having chest pain only with coughing. Fever is reported as well. Home medications and allergies are reviewed. - History of Current Complaint Chief Complaint: EDUpperRespComplaint Stated Complaint: CHEST PAIN PER PT Time Seen by Provider: 08/05/19 12:32 Hx Obtained From: Patient Onset/Duration: Lasting Weeks, Still Present Timing: Constant Current Severity: None Pain Intensity: 0 Character: Cough (Productive) Aggravating Factor(s): Other - coughing aggravates CP Associated Signs and Symptoms: Fever - subjective, Chest Pain with Cough, Nasal Congestion, Sinus Discomfort - Allergy/Home Medications Allergies/Adverse Reactions: Allergies Allergy/AdvReac Type Severity Reaction Status Date / Time Sulfa (Sulfonamide Allergy Rash Verified 08/05/19 11:43 Antibiotics) PMH/Surg Hx/FS Hx/Imm Hx Cardiovascular History: Reports: Hx Angina, Hx Congestive Heart Failure, Hx Hypertension Denies: Hx Coronary Artery Disease, Hx Hypercholesterolemia, Hx Myocardial Infarction, Hx Valvular Heart Disease Respiratory History: Reports: Hx Asthma Denies: Hx Chronic Obstructive Pulmonary Disease (COPD) Sensory History: Reports: Hx Contacts or Glasses Denies: Hx Hearing Aid Comment Only: Hx Deafness - very [place] Opthamlomology History: Reports: Hx Contacts or Glasses Infectious Disease History: No Infectious Disease History: Denies: Traveled Outside the [place] in Last 30 Days - Family History Known Family History: Positive: Diabetes - father - Social History Alcohol Use: None Substance Use Type: Reports: None Smoking Status (MU): Never Smoked Tobacco Review of Systems Positive: Fever - subjective ENT: Other - positive - sinus pain Positive: Nasal Discharge Positive: Chest Pain - with cough Positive: Cough All Other Systems Reviewed And Are Negative: Yes Physical Exam - Summary Physical Exam Summary: VITAL SIGNS: Reviewed. GENERAL: Patient is a well-developed and nourished female who is lying comfortable in the stretcher. Patient is not in any acute respiratory distress. HEAD AND FACE: No signs of trauma. No ecchymosis, hematomas or skull depressions. There is sinus tenderness and nasal discharge noted. EYES: PERRLA, EOMI x 2, No injected conjunctiva, no nystagmus. EARS: Decreased hearing. Ear canals and tympanic membranes are within normal limits. MOUTH: Oropharynx within normal limits. NECK: Supple, trachea is midline, no adenopathy, no JVD, no carotid bruit, no c- spine tenderness, neck with full ROM. CHEST: Symmetric, no tenderness at palpation. LUNGS: Crackles in lungs. No wheezing. CVS: Regular rate and rhythm, S1 and S2 present, no murmurs or gallops appreciated. ABDOMEN: Soft, non-tender. No signs of distention. No rebound, no guarding, and no masses palpated. Bowel sounds are normal. EXTREMITIES: FROM in all major joints, no edema, no cyanosis or clubbing. NEURO: Alert and oriented x 3. No acute neurological deficits. Speech is normal and follows commands. SKIN: Dry and warm. Triage Information Reviewed: Yes Vital Signs On Initial Exam: Initial Vitals Temp Pulse Resp BP Pulse Ox 97.4 F 60 16 131/70 100 08/05/19 11:38 08/05/19 11:38 08/05/19 11:38 08/05/19 11:38 08/05/19 11:38 Vital Signs Reviewed: Yes Procedures - Sedation Patient Received Moderate/Deep Sedation with Procedure: No Diagnostics - Vital Signs Vital Signs Temp Pulse Resp BP Pulse Ox 08/05/19 11:38 97.4 F 60 16 131/70 100 - Laboratory Lab Results: Lab Results 08/05/19 08/05/19 08/05/19 Range/Units 12:34 12:34 13:10 WBC 5.1 (3.5-10.8) 10^3/uL RBC 4.04 (3.70-4.87) 10^6 /uL Hgb 11.4 L (12.0-16.0) g/dL Hct 35 (35-47) % MCV 87 (80-97) fL MCH 28 (27-31) pg MCHC 33 (31-36) g/dL RDW 13 (10-15) % Plt Count 225 (150-450) 10^3/uL MPV 8.6 (7.4-10.4) fL Neut % (Auto) 53.1 % Lymph % (Auto) 31.9 % [place] % (Auto) 10.7 % Eos % (Auto) 3.2 % Baso % (Auto) 1.1 % Absolute Neuts (auto) 2.7 (1.5-7.7) 10^3/ul Absolute Lymphs (auto) 1.6 (1.0-4.8) 10^3/ul Absolute Monos (auto) 0.5 (0-0.8) 10^3/ul Absolute Eos (auto) 0.2 (0-0.6) 10^3/ul Absolute Basos (auto) 0.1 (0-0.2) 10^3/ul Absolute Nucleated RBC 0.0 10^3/ul Nucleated RBC % 0.2 Sodium 139 (135-145) mmol/L Potassium 4.1 (3.5-5.0) mmol/L Chloride 108 (101-111) mmol/L Carbon Dioxide 24 (22-32) mmol/L Anion Gap 7 (2-11) mmol/L BUN 8 (6-24) mg/dL Creatinine 1.01 H (0.51-0.95) mg/dL Est GFR ( Amer) 67.9 (>60) Est GFR (Non-Af Amer) 56.1 (>60) BUN/Creatinine Ratio 7.9 L (8-20) Glucose 128 H (70-100) mg/dL Lactic Acid 0.8 (0.5-2.0) mmol/L Calcium 9.7 (8.6-10.3) mg/dL Total Bilirubin 0.70 (0.2-1.0) mg/dL AST 20 (13-39) U/L ALT 19 (7-52) U/L Alkaline Phosphatase 81 (34-104) U/L Total Creatine Kinase 90 (10-223) U/L CK-MB (CK-2) 1.1 (0.6-6.3) ng/mL C-Reactive Protein 2.29 (<8.01) mg/L Total Protein 6.6 (6.4-8.9) g/dL Albumin 4.2 (3.2-5.2) g/dL Globulin 2.4 (2-4) g/dL Albumin/Globulin Ratio 1.8 (1-3) Influenza A (Rapid) (Negative) Influenza B (Rapid) (Negative) Group A Strep Rapid (Negative) 01/30/20 01/30/20 Range/Units 13:20 13:20 WBC (3.5-10.8) 10^3/uL RBC (3.70-4.87) 10^6 /uL Hgb (12.0-16.0) g/dL Hct (35-47) % MCV (80-97) fL MCH (27-31) pg MCHC (31-36) g/dL RDW (10-15) % Plt Count (150-450) 10^3/uL MPV (7.4-10.4) fL Neut % (Auto) % Lymph % (Auto) % [place] % (Auto) % Eos % (Auto) % Baso % (Auto) % Absolute Neuts (auto) (1.5-7.7) 10^3/ul Absolute Lymphs (auto) (1.0-4.8) 10^3/ul Absolute Monos (auto) (0-0.8) 10^3/ul Absolute Eos (auto) (0-0.6) 10^3/ul Absolute Basos (auto) (0-0.2) 10^3/ul Absolute Nucleated RBC 10^3/ul Nucleated RBC % Sodium (135-145) mmol/L Potassium (3.5-5.0) mmol/L Chloride (101-111) mmol/L Carbon Dioxide (22-32) mmol/L Anion Gap (2-11) mmol/L BUN (6-24) mg/dL Creatinine (0.51-0.95) mg/dL Est GFR ( Amer) (>60) Est GFR (Non-Af Amer) (>60) BUN/Creatinine Ratio (8-20) Glucose (70-100) mg/dL Lactic Acid (0.5-2.0) mmol/L Calcium (8.6-10.3) mg/dL Total Bilirubin (0.2-1.0) mg/dL AST (13-39) U/L ALT (7-52) U/L Alkaline Phosphatase (34-104) U/L Total Creatine Kinase (10-223) U/L CK-MB (CK-2) (0.6-6.3) ng/mL C-Reactive Protein (<8.01) mg/L Total Protein (6.4-8.9) g/dL Albumin (3.2-5.2) g/dL Globulin (2-4) g/dL Albumin/Globulin Ratio (1-3) Influenza A (Rapid) Negative (Negative) Influenza B (Rapid) Negative (Negative) Group A Strep Rapid Negative (Negative) Result Diagrams: 08/05/19 12:34 08/05/19 12:34 Lab Statement: Any lab studies that have been ordered have been reviewed, and results considered in the medical decision making process. - Radiology CXR Radiology Interpretation Completed By: Radiologist Summary of Radiographic Findings: IMPRESSION: No acute cardiopulmonary process identified. THIS REPORT WAS REVIEWED BY ED PHYSICIAN. - EKG 1144 Cardiac Rate: Bradycardia - rate of 56 BPM EKG Rhythm: Sinus Bradycardia Summary of EKG Findings: EKG showed sinus bradycardia with rate of 56 BPM, no ST elevations, Q wave in lead III. ED physician has reviewed and interpreted this EKG. Disposition - Course Assessment/Plan: Patient is a 59 y/o F presenting to [facility] with complaints of productive cough, sinus pain, rhinorrhea, chest pain, and fever. Patient reports that she has been having sinus pain, productive cough, and rhinorrhea for the past two weeks. She states that she has been having chest pain only with coughing. Fever is reported as well. Blood tests without any significant abnormality except for hemoglobin of 11.4, creatinine 1.01, glucose 128, influenza a negative, influenza b negative and rapid strep is negative. Chest x -ray impression: No acute cardiopulmonary disease. I believe that most of her symptoms are secondary to an acute sinusitis. Therefore she will be given a prescription for Augmentin since the symptoms are for more than 2 weeks. At this time the patient was discharged home with follow-up with primary care physician. Which is hemodynamically stable alert oriented 3. - Differential Dx - Cardiopulmonary Differential Diagnoses - Cardiopulmonary: Influenza, Laryngitis, Lower Resp Infection - Diagnoses Provider Diagnoses: Acute sinusitis Discharge ED - Sign-Out/Discharge Documenting (check all that apply): Patient Departure - DISCHARGE - Discharge Plan Condition: Stable Disposition: HOME Prescriptions: Amoxicillin/Clavulanate TAB* [Augmentin TAB 875*] 875 mg PO BID #20 tab Patient Education Materials: Sinusitis (ED) Referrals: [facility] [Outside] - 3 Days Additional Instructions: PLEASE RETURN TO ED FOR ANY NEW OR WORSENING SYMPTOMS. PLEASE FOLLOW UP WITH YOUR PRIMARY CARE PHYSICIAN WITHIN THREE DAYS. - Attestation Statements Document Initiated by Scribe: Yes Documenting Scribe: DEEPA COATES Provider For Whom Scribe is Documenting (Include Credential): RAFA DAS MD Scribe Attestation: I, DEEPA COATES, scribed for RAFA DAS MD on 08/05/19 at 1641. Status of Scribe Document: Ready
[2019-08-05 15:38] VITALS: BP 127/71
== END 2019-08-05 15:36 | disposition home or self-care (01) ==
LOC: ED 11:36
DX: J01.90 Acute sinusitis, unspecified (principal); I11.0 Hypertensive heart disease with heart failure; I50.9 Heart failure, unspecified; J45.909 Unspecified asthma, uncomplicated; Z88.2 Allergy status to sulfonamides
CPT/HCPCS: 36415; 71046; 80053; 82550; 82553; 83605; 85025; 86140; 87651; 93005; 99282